=== PATIENT | male | born 1995 | race Caucasian/White ===

== ENCOUNTER 2018-04-22 19:47 | Emergency (ER) | payer OTHER ==
[2018-04-22 20:03] VITALS: BMI 23.9
--- NOTE | 2018-04-22 20:03 | PDOC ---
Rapid Medical Evaluation Chief Complaint: Pain, Acute Time Seen by Provider: 04/22/18 20:02 Medical Evaluation: Allergies Allergy/AdvReac Type Severity Reaction Status Date / Time No Known Allergies Allergy Verified 10/26/14 04:53 04/22/18 20:02 I have performed a brief in-person evaluation of this patient. The patient presents with a chief complaint of:N/V/ malaise , low grade fevers since yesterday Pertinent physical exam findings: pale/ apears malaisic I have ordered the following: taken to bed 2 The patient will proceed to the ED for further evaluation. 04/22/18 20:09 04/22/18 20:10 Discharge Disposition - Referrals Referrals: Ebenezer Bauer MD [Primary Care Provider] - - Patient Instructions - Post Discharge Activity
[2018-04-22] MEDS ORDERED: ONDANSETRON 4 MG/2 ML VIAL IVPUSH ONE (20:26)
[2018-04-22] MEDS ORDERED: SODIUM CHLORIDE 1,000 ML IV STA ×2 (20:26→22:57)
[2018-04-22] MEDS ORDERED: ACETAMINOPHEN 1000 MG/100 ML VIAL (NON FORMULARY) IVPB ONE (20:26)
--- NOTE | 2018-04-22 20:30 | PDOC ---
Attending Attestation - HPI HPI: 04/22/18 21:00 The patient is a 22 year old male, with a significant past medical history of Fanconi anemia, who presents to the emergency department with fever, headache, sore throat and lightheadedness since yesterday. He describes the headache as global and rates it a 10/10 in severity. He additionally reports multiple episodes of nonbilious nonbloody emesis and diarrhea. He states that he feels dehydrated because he has not been take to tolerate oral intake very well. He reports mild shortness of breath but denies any vision changes, chest pain, abdominal pain or dysuria. The patient denies any sick contacts. He reports that he did not receive a flu vaccine this year. Allergies: None reported. Past Surgical History: Tonsillectomy. Social History: Non-smoker. Denies alcohol or drug use. Documentation prepared by Samantha Koch, acting as medical translator for Dorys Huynh MD. <Samantha Amin - Last Filed: 04/22/18 21:02> - Resident Resident Name: Zhang Reyes - ED Attending Attestation I have performed the following: I have examined & evaluated the patient, The case was reviewed & discussed with the resident, I agree w/resident's findings & plan, Exceptions are as noted - HPI HPI: 04/22/18 20:29 22-year-old male presents with nausea, vomiting ,diarrhea and general malaise and headache for one day. 04/22/18 20:54 - Physicial Exam PE: 04/22/18 20:30 slender 22 yo male p/e low grade fever and tachycardia head ncat neck supple,no nuchal rigidity dry mucus membranes lungs cta b/l cvs tachycardia abd no rebound extremities warm, no deformities,motor strength 5/5 b/l skin warm and dry flank no cva tenderness neuro axox4,ambulatory psych anxious 04/22/18 20:54 - Medical Decision Making 04/22/18 20:32 Dr Ebenezer Bauer called and said this pt has N,V,RODRIGUEZ and fever . He requested a ct scan of his head and electrolytes including phosphorous,magnesium and also cpk DR Sridhar Guzman ,Dr Small are his nephrologists 04/23/18 01:50 reviewed labs normal cbc ct scan head no acute intracranial pathology chemistries normal renal function,normal lfts,normal electrolytes pt had negative influenza and step cultures 04/23/18 01:52 REPEAT VS t=98.4 NQ=268/70 pulse=91 04/23/18 02:13 repeat lactic acid=0.8 <Dorys Huynh - Last Filed: 04/23/18 02:13>
[2018-04-22] MEDS ORDERED: ONDANSETRON 4 MG/2 ML VIAL ONE (20:55)
[2018-04-22] MEDS ORDERED: ACETAMINOPHEN INJECTION 100 ML IVPB ONE (20:55)
[2018-04-22 21:02] LABS: BASO % 0.3 % (0-2.0); EOS % 0.1 % (0-4.5); HEMOGLOBIN 17.4 GM/dL (11.7-16.9); LYMPH % 11.3 % (8-40); MCH 30.8 pg (25.7-33.7); MCHC 34.9 g/dl (32.0-35.9); MEAN CELL VOLUME 88.1 fl (80-96); MEAN PLT VOLUME 8.4 fl (7.5-11.1); NEUT % 75.3 % (42.8-82.8); PLATELET COUNT 216 K/MM3 (134-434); RBC 5.67 M/mm3 (4.00-5.60); RDW 12.8 % (11.9-15.9); WHITE BLOOD COUNT 7.7 K/mm3 (4.0-10.0)
--- NOTE | 2018-04-22 21:41 | PDOC ---
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 Per the patient, he states the symptoms began yesterday. The headache has been constant, global, 10/10 without radiation and described as a throbbing pain. He reports having 3x NBNB emesis episodes since yesterday and diarrhea with associative dehydration due to poor PO intake. Endorses the following: mild SOB. Denies the following: vision changes, ears and nose pain, chest pain, abdominal pain, dysuria, hematocheza, recent travels, and leg pain/swelling. Endorses recently smoking hookah that was shared with others. Pmhx: Refer to above Shx: Tonsilectomy Meds: Refer to chart reconciliation Allergies: NKDA Social: Denies tobacco, alcohol, and substance abuse Past History - Past Medical History Allergies/Adverse Reactions: Allergies Allergy/AdvReac Type Severity Reaction Status Date / Time No Known Allergies Allergy Verified 04/22/18 20:03 Home Medications: Ambulatory Orders Calcitriol [Rocaltrol] 0.5 mcg PO TID 10/26/12 Ergocalciferol (Vitamin D2) [Vitamin D] 50,000 unit PO KASPER 10/26/12 Levocarnitine [Carnitor] 2.5 mg PO DAILY 10/26/12 Rosuvastatin Calcium [Crestor] 20 mg PO DAILY 10/26/12 Sod Phos Di, [place]/K Phos [place] [Phospha 250 Neutral Tablet] 250 mg PO Q2H COPD: No Other medical history: FANCONI SYNDROME - Immunization History Immunization Up to Date: Yes - Suicide/Smoking/Psychosocial Hx Smoking Status: No Smoking History: Never smoked Number of Cigarettes Smoked Daily: 0 Information on smoking cessation initiated: No Hx Alcohol Use: No Substance Use Type: None Review of Systems - Review of Systems Able to Perform ROS?: Yes Is the patient limited Danish proficient: No Constitutional: Yes: Chills, Fever. No: Diaphoresis, Weakness HEENTM: Yes: Throat Pain. No: Recent change in vision, Ear Pain, Nose Pain, Mouth Pain Respiratory: Yes: Shortness of Breath. No: Cough, Hemoptysis Cardiac (ROS): No: Chest Pain, Lightheadedness, Palpitations, Syncope, Chest Tightness ABD/GI: Yes: Diarrhea, Nausea, Poor Appetite, Poor Fluid Intake, Vomiting. No: Constipated, Rectal Bleeding, Abdominal cramping, Tarry Stools : No: Burning, Dysuria, Incontinence, Pain, Urgency Musculoskeletal: No: Back Pain, Gout, Joint Pain, Neck Pain Integumentary: No: Lesions, Lumps, Rash Neurological: Yes: Headache. No: Numbness, Tremors, Weakness, Ataxia, Dizziness Psychiatric: No: Stressors Endocrine: No: Unexplained Weight Gain Hematologic/Lymphatic: No: Anemia *Physical Exam - Vital Signs Last Vital Signs Temp Pulse Resp BP Pulse Ox 100.1 F H 134 H 18 114/84 98 04/22/18 20:00 04/22/18 20:00 04/22/18 20:00 04/22/18 20:00 04/22/18 21:12 - Physical Exam General Appearance: Yes: Nourished, Appropriately Dressed. No: Apparent Distress, Intoxicated HEENT: positive: EOMI, [place], Normal Voice, Symmetrical, TMs Normal, Pharyngeal Erythema, Nasal Congestion, Hearing Grossly Normal, Other (dry mucous membranes) . negative: Pharynx Normal, Tonsillar Exudate, Tonsillar Erythema, Sinus Tenderness, Excessive drooling Neck: positive: Trachea midline, Supple. negative: Tender, Lymphadenopathy (R) , Lymphadenopathy (L), Tender lateral, Tender midline Respiratory/Chest: positive: Lungs Clear, Normal Breath Sounds. negative: Chest Tender, Respiratory Distress, Accessory Muscle Use, Crackles, Rales, Rhonchi, Stridor, Wheezing Cardiovascular: positive: Regular Rhythm, S1, S2, Tachycardia. negative: Systolic Murmur Gastrointestinal/Abdominal: positive: Normal Bowel Sounds, Flat, Soft. negative : Tender Lymphatic: negative: Adenopathy Musculoskeletal: positive: Normal Inspection. negative: CVA Tenderness, Vertebral Tenderness Extremity: positive: Normal Capillary Refill, Normal Inspection, Normal Range of Motion. negative: Tender Integumentary: positive: Normal Color, Dry, Warm Neurologic: positive: tennis racket repairer II-XII NML intact, Fully Oriented, Alert, Normal Mood/ Affect, Normal Response, Motor Strength 5/5. negative: EOM Palsy, Facial Droop , Sensory Deficit Moderate Sedation - Procedure Monitoring Vital Signs: Procedure Monitoring Vital Signs Temperature 100.1 F H 04/22/18 20:00 Pulse Rate 134 H 04/22/18 20:00 Respiratory Rate 18 04/22/18 20:00 Blood Pressure 114/84 04/22/18 20:00 O2 Sat by Pulse Oximetry (%) 98 04/22/18 21:12 ED Treatment Course - LABORATORY CBC & Chemistry Diagram: 04/22/18 20:50 04/22/18 20:50 - ADDITIONAL ORDERS Additional order review: 04/22/18 20:50 RBC 5.67 H MCV 88.1 MCHC 34.9 RDW 12.8 MPV 8.4 Neutrophils % 75.3 Lymphocytes % 11.3 Monocytes % 13.0 H D Eosinophils % 0.1 D Basophils % 0.3 - RADIOLOGY Radiology Studies Ordered: Category Date Time Status HEAD CT WITHOUT CONTRAST [CT] Stat CT Scan 04/22/18 20:24 Ordered - Medications Given in the ED: ED Medications Discontinued Medications Generic Name Dose Route Start Last Admin Trade Name Freq PRN Reason Stop Dose Admin Acetaminophen 1,000 mg 04/22/18 20:26 04/22/18 21:06 Ofirmev Injection - IVPB 04/22/18 20:27 1,000 mg ONCE ONE Administration Sodium Chloride 1,000 mls @ 1,000 mls/hr 04/22/18 20:26 04/22/18 21:06 Normal Saline - IV 04/22/18 21:25 1,000 mls/hr ASDIR STA Administration Ondansetron HCl 4 mg 04/22/18 20:26 04/22/18 21:06 Zofran Injection IVPUSH 04/22/18 20:27 4 mg ONCE ONE Administration Medical Decision Making - Medical Decision Making 22 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 initial vitals: Initial Vital Signs Temp Pulse Resp BP Pulse Ox 100.1 F H 134 H 18 114/84 98 04/22/18 20:00 04/22/18 20:00 04/22/18 20:00 04/22/18 20:00 04/22/18 20:00 work up: ddx: viral syndrome (influenza vs rhino) vs bacterial infection (PNA) vs worsening fanconi syndrome (electrolyte disturbance) vs intracranial mass Laboratory Tests 04/22/18 04/22/18 04/22/18 10:37 20:50 20:50 WBC 7.7 RBC 5.67 H Hgb 17.4 H Hct 50.0 H MCV 88.1 MCH 30.8 MCHC 34.9 RDW 12.8 Plt Count 216 MPV 8.4 Absolute Neuts (auto) 5.8 Neutrophils % 75.3 Lymphocytes % 11.3 Monocytes % 13.0 H D Eosinophils % 0.1 D Basophils % 0.3 Nucleated RBC % 0 Sodium 137 Potassium 4.3 Chloride 106 Carbon Dioxide 23 Anion Gap 8 BUN 9 Creatinine 1.2 Creat Clearance w eGFR > 60 Random Glucose 155 H Lactic Acid Calcium 8.4 L Phosphorus 4.0 Magnesium 2.3 Total Bilirubin 0.6 AST 17 ALT 27 Alkaline Phosphatase 84 Creatine Kinase 46 Total Protein 7.9 Albumin 4.0 Urine Color Colorless Urine Appearance Clear Urine pH 7.0 Ur Specific Omar 1.011 Urine Protein 1+ H Urine Glucose (UA) 3+ H Urine Ketones Negative Urine Blood 1+ H Urine Nitrite Negative Urine Bilirubin Negative Urine Urobilinogen Negative Ur Leukocyte Esterase Negative Urine WBC (Auto) 1 Urine RBC (Auto) 2 Influenza A (Rapid) Influenza B (Rapid) Group A Strep Rapid 04/22/18 04/22/18 04/22/18 20:50 21:00 21:00 WBC RBC Hgb Hct MCV MCH MCHC RDW Plt Count MPV Absolute Neuts (auto) Neutrophils % Lymphocytes % Monocytes % Eosinophils % Basophils % Nucleated RBC % Sodium Potassium Chloride Carbon Dioxide Anion Gap BUN Creatinine Creat Clearance w eGFR Random Glucose Lactic Acid 2.9 H* Calcium Phosphorus Magnesium Total Bilirubin AST ALT Alkaline Phosphatase Creatine Kinase Total Protein Albumin Urine Color Urine Appearance Urine pH Ur Specific Omar Urine Protein Urine Glucose (UA) Urine Ketones Urine Blood Urine Nitrite Urine Bilirubin Urine Urobilinogen Ur Leukocyte Esterase Urine WBC (Auto) Urine RBC (Auto) Influenza A (Rapid) Negative Influenza B (Rapid) Negative Group A Strep Rapid Negative 04/23/18 01:00 WBC RBC Hgb Hct MCV MCH MCHC RDW Plt Count MPV Absolute Neuts (auto) Neutrophils % Lymphocytes % Monocytes % Eosinophils % Basophils % Nucleated RBC % Sodium Potassium Chloride Carbon Dioxide Anion Gap BUN Creatinine Creat Clearance w eGFR Random Glucose Lactic Acid 0.8 Calcium Phosphorus Magnesium Total Bilirubin AST ALT Alkaline Phosphatase Creatine Kinase Total Protein Albumin Urine Color Urine Appearance Urine pH Ur Specific Omar Urine Protein Urine Glucose (UA) Urine Ketones Urine Blood Urine Nitrite Urine Bilirubin Urine Urobilinogen Ur Leukocyte Esterase Urine WBC (Auto) Urine RBC (Auto) Influenza A (Rapid) Influenza B (Rapid) Group A Strep Rapid labs were within normal limits except for the lactic acid at 2.9. this is likely dehydration vs infection due to WBC normal. Per Dr. Bauer, he requested a CT head which was negative for acute pathologies. negative influenza and strep. patient was given 1 gram of acetaminophen and 2 L of NS 0.9% for rehydration. Subsequent repeat of lactic acid showed 0.8 with vital signs showing the following: temperature 98.4, BP 118/70, and pulse 91. Patient will be discharged with close PMD follow up. I discussed the physical exam findings, ancillary test results, and final diagnoses with the patient. I answered all of the patients questions to their satisfaction. The patient was satisfied with the care received and felt comfortable with the discussed discharge and treatment plan and accepted it. They agreed to follow up with their primary medical physical physician within 24 -72 hours after discharge for follow up care and management. Dispo: Discharge *DC/Admit/Observation/Transfer Diagnosis at time of Disposition: Viral syndrome, Fanconi syndrome - Discharge Dispostion Disposition: HOME Condition at time of disposition: Improved Decision to Admit order: No - Referrals Referrals: Ebenezer Bauer MD [Primary Care Provider] - Michelle Small MD [Staff Physician] - - Patient Instructions Printed Discharge Instructions: DI for Viral Syndrome Additional Instructions: You were seen in the emergency department for the evaluation of your headache, fever, nausea, and vomiting. your labs were within normal limits except for your lactic acid which was elevated. after fluids and pain control, your lactic acid improved to within normal limits and your vital signs improved. please follow up with Dr. Bauer within 48 hours after discharge for follow up care and management. please return to the emergency department if you have worsening symptoms or new concerning symptoms such as confusion, diffuse abdominal pain, and uncontrollable vomiting and nausea. in addition, please return if you have severe muscle spasm. Thank you. - Post Discharge Activity
[2018-04-22] MEDS ORDERED: METOCLOPRAMIDE HCL INJECTION 10 MG/2 ML VIAL IVPUSH ONE (22:01)
[2018-04-22 22:08] LABS: ALK PHOS 84 U/L (45-117); ANION GAP 8 MMOL/L (8-16); BILIRUBIN,TOTAL 0.6 mg/dL (0.2-1); BLOOD UREA NITROGEN 9 mg/dL (7-18); CALCIUM 8.4 mg/dL (8.5-10.1); CHLORIDE 106 mmol/L (98-107); CO2 23 mmol/L (21-32); CREATININE 1.2 mg/dL (0.55-1.3); GLUCOSE,RANDOM 155 mg/dL (74-106); MAGNESIUM 2.3 mg/dL (1.8-2.4); POTASSIUM 4.3 mmol/L (3.5-5.1); SGOT/AST 17 U/L (15-37); SGPT/ALT 27 U/L (13-61); SODIUM 137 mmol/L (136-145); TOT PROT 7.9 g/dl (6.4-8.2)
[2018-04-22] MEDS ORDERED: METOCLOPRAMIDE HCL INJECTION 10 MG/2 ML VIAL ONE (22:21)
[2018-04-22 22:50] LABS: URINE APPEARANCE CLEAR; URINE BILIRUBIN NEGATIVE (<2.0 mg/dL); URINE COLOR COLORLESS; URINE GLUCOSE (UA) 3+ (NEGATIVE); URINE KETONE NEGATIVE (NEGATIVE); URINE LEUK ESTERASE NEGATIVE (NEGATIVE); URINE NITRITE NEGATIVE (NEGATIVE); URINE PROTEIN 1+ (NEGATIVE); URINE UROBILINOGEN NEGATIVE mg/dL (0.2-1.0)
[2018-04-23 01:53] VITALS: BP 118/70; PULSE 91; TEMP 98.4
== END 2018-04-23 02:59 | disposition home or self-care (01) ==
LOC: JER 19:47
PROC: 3E033NZ Introduction of Analgesics, Hypnotics, Sedatives into Peripheral Vein, Percutaneous Approach (ICD-10-PCS; principal; 2018-04-22)
PROC: 3E033GC Introduction of Other Therapeutic Substance into Peripheral Vein, Percutaneous Approach (ICD-10-PCS; 2018-04-22)
PROC: 3E0337Z Introduction of Electrolytic and Water Balance Substance into Peripheral Vein, Percutaneous Approach (ICD-10-PCS; 2018-04-22)
DX: B34.9 Viral infection, unspecified (principal); E72.09 Other disorders of amino-acid transport
CPT/HCPCS: 36415; 70450-TC; 71046-TC-FY; 80053; 81003; 81015; 82550; 83605; 83735; 84100; 85025; 87070; 87086; 87804; 87880; 99285-25; J0131; J7030

== ENCOUNTER 2018-09-29 02:04 | Emergency (ER) | payer OTHER | END 2018-09-29 03:05 | disposition home or self-care (01) | LOC: JER 02:04 ==

== ENCOUNTER 2018-10-19 09:42 | Emergency (ER) | payer OTHER ==
[2018-10-19 09:53] VITALS: TEMP 97.6; BMI 24.7
--- NOTE | 2018-10-19 09:56 | PDOC ---
History of Present Illness - General Chief Complaint: Nausea/Vomiting Stated Complaint: DEHYDRATION Time Seen by Provider: 10/19/18 09:55 - History of Present Illness Initial Comments: Robert Arriola is a 23yo man with a PMH of Fanconi syndrome who presents with multiple episodes of NBNB vomiting and subsequent abdominal pain after drinking last night. His sister and brother brought him to the ED; they report that he rarely drinks and "gets dehydrated really easily" due to his Fanconi's. Mr Arriola report that he "doesn't feel good" and "keeps throwing up." He is concerned that he is very dehydrated and is requesting IV fluids. Past History - Past Medical History Allergies/Adverse Reactions: Allergies Allergy/AdvReac Type Severity Reaction Status Date / Time No Known Allergies Allergy Verified 10/19/18 11:10 Home Medications: Ambulatory Orders Calcitriol [Rocaltrol] 0.5 mcg PO TID 10/26/12 Ergocalciferol (Vitamin D2) [Vitamin D] 50,000 unit PO KASPER 10/26/12 Rosuvastatin Calcium [Crestor] 20 mg PO DAILY 10/26/12 Sod Phos Di, [place]/K Phos [place] [Phospha 250 Neutral Tablet] 250 mg PO Q2H Dextroamphetamine/Amphetamine [Adderall Xr 30 mg Capsule] 30 mg PO ASDIR Famotidine [Pepcid -] 20 mg PO DAILY #7 tablet 10/19/18 Levocarnitine 330 mg PO 10/19/18 Ondansetron [Zofran Odt -] 4 mg SL TID PRN #21 od.tablet 10/19/18 Potassium Citrate 1,620 gm MC Q2H 10/19/18 COPD: No - Immunization History Immunization Up to Date: Yes - Suicide/Smoking/Psychosocial Hx Smoking Status: No Smoking History: Current every day smoker Have you smoked in the past 12 months: No Number of Cigarettes Smoked Daily: 0 Information on smoking cessation initiated: No Hx Alcohol Use: No Drug/Substance Use Hx: No Substance Use Type: None Review of Systems - Review of Systems Comments:: General: No fevers, no chills, no weight or appetite change, + malaise HEENT: No changes in vision, no changes in hearing, no congestion, no sore throat CV: No chest pain, no palpitations, no LE edema Pulm: No SOB, no cough, no wheezing GI: +nausea and vomiting, no change in bowel habits, no melena : No frequency, no urgency, no dysuria Musc: No back pain, no joint swelling, no recent injury Skin: No rash, no lesions, no erythema Endo: No excessive thirst, no heat/cold intolerance Heme: No unusual bruising or bleeding, no swollen glands Neuro: No syncope, no numbness/tingling, no focal weakness Vasc: No claudication Psych: No recent change in mood, no SI or HI *Physical Exam - Vital Signs Last Vital Signs Temp Pulse Resp BP Pulse Ox 97.6 F 112 H 16 110/59 L 98 10/19/18 09:50 10/19/18 09:50 10/19/18 09:50 10/19/18 09:50 10/19/18 09:50 - Physical Exam Comments: General: Comfortable, no acute distress HEENT: PERRL, EOMI, conjunctival injection b/l, MMM, voice normal Cards: RRR, no murmur appreciated Pulm: Comfortable on room air, clear to auscultation bilaterally Abd: Soft, nontender, nondistended Ext: Atraumatic. No LE edema. ROM intact Vasc: Extremities WWP Skin: Normal color, no rashes or lesions Neuro: A&Ox3, CN grossly intact, normal speech, motor/sensory grossly intact and symmetric Psych: Mood appropriate to situation ED Treatment Course - LABORATORY CBC & Chemistry Diagram: 10/19/18 10:06 10/19/18 10:06 Medical Decision Making - Medical Decision Making 10/19/18 10:05 Robert Arriola is a 23yo man with a PMH of Fanconi syndrome who presents with multiple episodes of NBNB vomiting, nausea, abdominal pain and general malaise after going out drinking last night. - Most likely n/v secondary to alcohol overuse - Given medical history, will evaluate for electrolyte abnormalities, SNOW, or significant dehydration - 1L IVF, famotidine, reglan, acetaminophen 10/19/18 11:29 - Labs reviewed. Chemistry w/o concerning abnormalities. Cr 0.9, apparently at baseline. Hgb 18.1, up from baseline, likely due to mild dehydration. - Will most likely discharge when IVF completed - PO challenge 10/19/18 12:17 - Tolerated PO intake - Discussed lab results, no concerning findings, kidney function unchanged. - Vitals now normal, HR 80 - Advised regarding home care, follow up Discussed with Dr Yu. Renae Galindo PGY1 *DC/Admit/Observation/Transfer Diagnosis at time of Disposition: Nausea & vomiting Qualifiers: Vomiting type: unspecified Vomiting Intractability: non-intractable Qualified Code(s): R11.2 - Nausea with vomiting, unspecified Hangover Qualifiers: Complication of substance-induced condition: uncomplicated Qualified Code(s): F10.120 - Alcohol abuse with intoxication, uncomplicated - Discharge Dispostion Disposition: HOME Condition at time of disposition: Stable - Referrals Referrals: Ebenezer Bauer MD [Primary Care Provider] - - Patient Instructions Printed Discharge Instructions: DI for Vomiting -- Adult Additional Instructions: Discharge Instructions: You were seen in the ED for nausea and vomiting. You had blood tests which showed normal kidney function and normal electrolytes. You were given IV fluids , acetaminophen for pain, an anti-acid medication (Pepcid) and an anti-nausea medication (Reglan). Home Care and Follow Up: - Please continue to drink plenty of fluids at home. It is OK if you are not hungry as long as you are staying well-hydrated. - You have been prescribed a nausea medication called Zofran (ondansetron). This may be taken every 6-8 hours as needed for nausea or vomiting. - You have been prescribed an anti-acid medication called Pepcid. This can be taken daily for the next 7 days or until your symptoms resolve. You were given a dose while in the ED, so start this medication tomorrow. - Please follow up with your regular doctor within the next 2-3 days - Seek immediate care if your symptoms do not improve within a day or two, you are unable to tolerate fluids, you become dehydrated, you stop urinating or have very dark urine, or you have any other medical emergency. - Post Discharge Activity
--- NOTE | 2018-10-19 09:58 | PDOC ---
Attending Attestation - Resident Resident Name: Renae Galindo - ED Attending Attestation I have performed the following: I have examined & evaluated the patient, The case was reviewed & discussed with the resident, I agree w/resident's findings & plan - HPI HPI: 10/19/18 09:57 23 YOM with h/o fanconi syndrome presenting with abdominal pain, nausea, NBNB emesis since last night. he was drinking alcohol last night with friends and admits to drinking more than he should. no fever, urinary sx, bowel movement changes, diarrhea or bloody stools. unable to take PO today no sick contacts or travel. 10/19/18 10:43 - Physicial Exam PE: 10/19/18 10:45 Agree with the resident's HPI and PE as documented in the electronic medical record. malaised appearing, EOMI, PERRL, dry membranes, nl conjunctiva, anicteric; neck supple. lungs clear, tachycardic, abdomen soft nontender. Back nontender, no CVAT. TAM x4, no focal neuro deficits. No peripheral edema. normal color for ethnicity, WWP. - Medical Decision Making 10/19/18 10:45 Vital Signs Temp Pulse Resp BP Pulse Ox 97.6 F 112 H 16 110/59 L 98 10/19/18 09:50 10/19/18 09:50 10/19/18 09:50 10/19/18 09:50 10/19/18 09:50 See HPI for details. Prior notes reviewed, including admissions, discharges and consultations. Vital signs reviewed, +tachycardic, no fever normotensive, likely from dehydration ddx. gastritis, PUD, ulcer, pancreatitis, hepatitis, dehydration, anemia, electrolyte/metabolic derangements, food poisoning, alcohol poisoning/hangover ED course: IVF, reglan, tylenol for pain, pepcid, reassess labs and lytes wnl, normal LFTs and lipase; hemoconcentration noted, from dehydration abdomen soft and benign, doubt peritoneal or intra abdominal process, no systemic sx. tolerating PO intake feels improved, repeat VS improved, tachy down, nonseptic rx zofran for n/v, as needed resume home meds stay hydrated, supportive care, DC in stable condition, return precautions emphasized PCP followup Dr Bauer, who came to assess patient briefly while in the department. 10/19/18 10:47 10/19/18 10:48 10/19/18 11:31
[2018-10-19] MEDS ORDERED: ACETAMINOPHEN 1000 MG/100 ML VIAL (NON FORMULARY) IVPB ONE (10:05)
[2018-10-19] MEDS ORDERED: FAMOTIDINE 20 MG/50 ML IVPB 20 MG/50 ML MG IVPB ONE ×2 (10:05→10:20)
[2018-10-19] MEDS ORDERED: SODIUM CHLORIDE 0.9% 500 ML INFUS.BAG IV ONE (10:05)
[2018-10-19] MEDS ORDERED: METOCLOPRAMIDE HCL INJECTION 10 MG/2 ML VIAL IVPUSH ONE (10:05)
[2018-10-19] MEDS ORDERED: ACETAMINOPHEN INJECTION 100 ML IVPB ONE (10:20)
[2018-10-19] MEDS ORDERED: METOCLOPRAMIDE HCL INJECTION 10 MG/2 ML VIAL ONE (10:20)
[2018-10-19 10:23] LABS: BASO % 0.4 % (0-2.0); HEMATOCRIT 54.1 % (35.4-49); HEMOGLOBIN 18.1 GM/dL (11.7-16.9); LYMPH % 12.2 % (8-40); MCH 30.6 pg (25.7-33.7); MCHC 33.5 g/dl (32.0-35.9); MEAN CELL VOLUME 91.1 fl (80-96); MEAN PLT VOLUME 8.1 fl (7.5-11.1); MONO % 2.7 % (3.8-10.2); NEUT % 84.7 % (42.8-82.8); RBC 5.93 M/mm3 (4.00-5.60); RDW 13.6 % (11.9-15.9); WHITE BLOOD COUNT 9.4 K/mm3 (4.0-10.0)
[2018-10-19 10:50] LABS: ALBUMIN 4.7 g/dl (3.4-5.0); BILIRUBIN,TOTAL 0.5 mg/dL (0.2-1); CALCIUM 9.1 mg/dL (8.5-10.1); CREATININE 0.9 mg/dL (0.55-1.3); MAGNESIUM 2.9 mg/dL (1.8-2.4); PHOSPHOROUS 2.7 mg/dL (2.5-4.9); POTASSIUM 3.8 mmol/L (3.5-5.1); TOT PROT 8.3 g/dl (6.4-8.2)
[2018-10-19 11:28] LABS: PLATELET COUNT 256 K/MM3 (134-434)
[2018-10-19 12:09] VITALS: BP 113/74; PULSE 88
== END 2018-10-19 12:42 | disposition home or self-care (01) ==
LOC: JER 09:42
PROC: 3E033GC Introduction of Other Therapeutic Substance into Peripheral Vein, Percutaneous Approach (ICD-10-PCS; principal; 2018-10-19)
DX: F10.120 Alcohol abuse with intoxication, uncomplicated (principal); R11.2 Nausea with vomiting, unspecified
CPT/HCPCS: 36415; 80053; 83690; 83735; 84100; 85025; 96365; 99282-25; J0131

== ENCOUNTER 2019-06-26 02:11 | Emergency (ER) | payer OTHER ==
--- NOTE | 2019-06-26 02:42 | PDOC ---
Attending Attestation - Resident Resident Name: Allan Mei - ED Attending Attestation I have performed the following: I have examined & evaluated the patient, The case was reviewed & discussed with the resident, I agree w/resident's findings & plan - HPI HPI: 06/26/19 06:13 see resident hpi - Physicial Exam PE: 06/26/19 06:13 see resident exam 06/26/19 06:16 - Medical Decision Making 06/26/19 06:17 23-year-old male complaining of [id number] to the chest and shortness of breath after taking Adderall later than usual He did have an episode of vomiting as well EKG is unremarkable Labs show no acute electrolyte abnormality, troponin within normal limits Patient is feeling better, will DC with recommendation to follow-up with primary care in regards to medication administration instructions
[2019-06-26 02:48] VITALS: BMI 23.8
--- NOTE | 2019-06-26 02:52 | PDOC ---
History of Present Illness - General Chief Complaint: Shortness of Breath Stated Complaint: SOB,NAUSEA Time Seen by Provider: 06/26/19 02:39 History Source: Patient Exam Limitations: No Limitations - History of Present Illness Initial Comments: 06/26/19 02:51 PCP: Dr. Bauer HPI: 23yo M PMH of Fanconi syndrome who presents with multiple episodes of NBNB vomiting since 3-4PM. Also endorsing mild headache, lightheadedness, intermittent sharp non-radiating chest pain, shortness of breath. Reports that he "gets dehydrated really easily" due to his Fanconi's and states that he doesn 't feel well and probably needs IV fluids. He is concerned that his Adderall use later in the caused his nausea. He reports that he is having difficulty sleeping because he is concerned over his nausea. no cardaic history, denies any medical problems other than those listed above. Endorses infrequent alcohol consumption, denies illicits. NKDA Meds per chart Past History - Past Medical History Allergies/Adverse Reactions: Allergies Allergy/AdvReac Type Severity Reaction Status Date / Time No Known Allergies Allergy Verified 10/19/18 11:10 Home Medications: Ambulatory Orders Calcitriol [Rocaltrol] 0.5 mcg PO TID 10/26/12 Ergocalciferol (Vitamin D2) [Vitamin D] 50,000 unit PO KASPER 10/26/12 Rosuvastatin Calcium [Crestor] 20 mg PO DAILY 10/26/12 Sod Phos Di, [place]/K Phos [place] [Phospha 250 Neutral Tablet] 250 mg PO Q2H Dextroamphetamine/Amphetamine [Adderall Xr 30 mg Capsule] 30 mg PO ASDIR Famotidine [Pepcid -] 20 mg PO DAILY #7 tablet 10/19/18 Levocarnitine 330 mg PO 10/19/18 Ondansetron [Zofran Odt -] 4 mg SL TID PRN #21 od.tablet 10/19/18 Potassium Citrate 1,620 gm MC Q2H 10/19/18 COPD: No - Immunization History Immunization Up to Date: Yes - Psycho Social/Smoking Cessation Hx Smoking Status: No Smoking History: Never smoked Have you smoked in the past 12 months: No Number of Cigarettes Smoked Daily: 0 Hx Alcohol Use: No Drug/Substance Use Hx: No Substance Use Type: None Review of Systems - Review of Systems Able to Perform ROS?: Yes Is the patient limited French proficient: Yes Constitutional: Yes: Chills. No: Diaphoresis, Fever, Weakness HEENTM: No: Nose Congestion, Throat Pain Respiratory: Yes: See HPI, Shortness of Breath. No: Cough, SOB with Exertion, SOB at Rest Cardiac (ROS): Yes: See HPI, Chest Pain (sharp, worse when sitting, less with movement / distraction). No: Irregular Heart Rate, Lightheadedness, Palpitations, Syncope, Chest Tightness ABD/GI: Yes: See HPI, Nausea, Vomiting. No: Constipated, Diarrhea : No: Burning, Dysuria, Frequency Musculoskeletal: No: Muscle Pain, Muscle Weakness, Neck Pain Integumentary: No: Pruritus, Rash Neurological: No: Headache, Numbness, Tingling Psychiatric: No: Stressors, Change in Appetite Endocrine: No: Increased Thirst, Increased Urine Hematologic/Lymphatic: No: Anemia, Blood Clots, Easy Bleeding All Other Systems: Reviewed and Negative *Physical Exam - Vital Signs Last Vital Signs Temp Pulse Resp BP Pulse Ox 97.9 F 110 H 18 129/86 99 06/26/19 02:44 06/26/19 02:44 06/26/19 02:44 06/26/19 02:44 06/26/19 02:44 - Physical Exam 06/26/19 05:57 Vitals reviewed, AFVSS GEN: Well appearing, appears stated age, NAD, comfortable. AAOx3. HEENT: NCAT, EOMI, PERRL. Sclera anicteric, noninjected. No facial asymmetry. Moist mucous membranes. Normal voice. Trachea midline. CV: RRR, S1/S2, no murmurs / rubs / gallops appreciated. LUNG: CTAB, normal work of breathing. No wheezes, rales, rhonchi. No cough. Speaking full sentences. GI: Soft, NTND, +BS, no guarding, no rebound. No masses. Neg CVAT b/l. EXTREMITIES: 2+ distal pulses. No LE edema. No obvious deformities of all extremities. SKIN: Warm, dry, no rashes appreciated, non-jaundiced. PSYCH: Normal mood and affect. Cooperative and appropriate. NEURO: CN grossly intact. Moving all extremities well. Normal strength and sensation grossly. ED Treatment Course - LABORATORY CBC & Chemistry Diagram: 06/26/19 03:30 06/26/19 03:30 Medical Decision Making - Medical Decision Making 06/26/19 04:46 23yo M PMH of Fanconi syndrome who presents with multiple episodes of NBNB vomiting since 3-4PM. Exam notable for tachycardia, afebrile. DDX: Viral gastritis, dehydration, less likely PE. Cannot PERC out given HR, Wells 1.5 for HR (low risk). - CBC, CMP, Cardiac Profile, D-Dimer - EKG - 1L IVF EKbpm, NSR, normal axis, normal intervals, no ST changes or concerning morphologies 06/26/19 05:07 - Additional 1L IVF - 4mg Zofran - 1g Ofirmev - Labs unremarkable 06/26/19 05:58 - Patient is resting comfortably in the department - States that he is feeling better - Able to tolerate PO juice and crackers - Sent for Xray 06/26/19 06:35 - CXR unchaged from prior, no acute pathology Dispo: Home Discharge - Discharge Information Problems reviewed: Yes Clinical Impression/Diagnosis: Nausea & vomiting Qualifiers: Vomiting type: unspecified Vomiting Intractability: non-intractable Qualified Code(s): R11.2 - Nausea with vomiting, unspecified Condition: Improved Disposition: HOME - Admission No - Follow up/Referral Referrals: Ebenezer Bauer MD [Primary Care Provider] - - Patient Discharge Instructions Patient Printed Discharge Instructions: DI for Nausea -- Adult, DI for Vomiting -- Adult Additional Instructions: You were seen and evaluated for nausea and vomiting. Continue your home medications as prescribed. Follow up with Dr. Bauer in the next 1-3 days if symptoms persist. Return to the ED for any new or concerning symptoms including but not limited to : inability to take fluid by mouth. - Post Discharge Activity
[2019-06-26] MEDS ORDERED: SODIUM CHLORIDE 0.9% 500 ML INFUS.BAG IV ONE ×2 (03:12→05:07)
[2019-06-26 03:52] LABS: BASO % 0.5 % (0-2.0); EOS % 0.4 % (0-4.5); HEMOGLOBIN 18.7 GM/dL (11.7-16.9); LYMPH % 32.4 % (8-40); MCH 30.4 pg (25.7-33.7); MCHC 33.9 g/dl (32.0-35.9); MEAN CELL VOLUME 89.6 fl (80-96); MEAN PLT VOLUME 8.4 fl (7.5-11.1); MONO % 5.7 % (3.8-10.2); PLATELET COUNT 252 K/MM3 (134-434); RBC 6.14 M/mm3 (4.00-5.60); RDW 12.4 % (11.9-15.9); WHITE BLOOD COUNT 5.8 K/mm3 (4.0-10.0)
[2019-06-26 03:56] LABS: INR 0.97 (0.83-1.09); PROTHROMBIN TIME (PATIENT) 11.5 SEC (9.7-13.0)
[2019-06-26 04:16] LABS: ALBUMIN 4.1 g/dl (3.4-5.0); ALK PHOS 84 U/L (45-117); ANION GAP 7 MMOL/L (8-16); BILIRUBIN,TOTAL 1.2 mg/dL (0.2-1); BLOOD UREA NITROGEN 12.3 mg/dL (7-18); CALCIUM 9.3 mg/dL (8.5-10.1); CHLORIDE 110 mmol/L (98-107); CO2 25 mmol/L (21-32); CREATININE 1.2 mg/dL (0.55-1.3); GLUCOSE,RANDOM 118 mg/dL (74-106); SGOT/AST 22 U/L (15-37); SGPT/ALT 32 U/L (13-61); SODIUM 141 mmol/L (136-145); TOT PROT 7.8 g/dl (6.4-8.2)
[2019-06-26] MEDS ORDERED: ONDANSETRON 4 MG/2 ML VIAL IVPUSH ONE (05:07)
[2019-06-26] MEDS ORDERED: ACETAMINOPHEN 1000 MG/100 ML VIAL (NON FORMULARY) IVPB ONE (05:19)
[2019-06-26] MEDS ORDERED: ACETAMINOPHEN INJECTION 100 ML IVPB ONE (05:40)
[2019-06-26] MEDS ORDERED: ONDANSETRON 4 MG/2 ML VIAL ONE (05:42)
[2019-06-26 06:46] VITALS: BP 118/87; PULSE 98; TEMP 98.4
--- NOTE | 2019-06-26 14:14 | EKG ---
Test Reason : Blood Pressure : / mmHG Vent. Rate : 096 BPM Atrial Rate : 096 BPM P-R Int : 124 ms QRS Dur : 086 ms QT Int : 366 ms P-R-T Axes : 077 079 083 degrees QTc Int : 462 ms NORMAL SINUS RHYTHM NORMAL ECG NO PREVIOUS ECGS AVAILABLE Confirmed by NIELS MONTANEZ MD ([id number]) on 06/26/2019 2:13:34 PM Referred By: Confirmed By:NIELS MONTANEZ MD
== END 2019-06-26 06:50 | disposition home or self-care (01) ==
LOC: JER 02:11
PROC: 3E033GC Introduction of Other Therapeutic Substance into Peripheral Vein, Percutaneous Approach (ICD-10-PCS; principal; 2019-06-26)
PROC: 3E033NZ Introduction of Analgesics, Hypnotics, Sedatives into Peripheral Vein, Percutaneous Approach (ICD-10-PCS; 2019-06-26)
DX: R11.2 Nausea with vomiting, unspecified (principal); R06.02 Shortness of breath; E72.09 Other disorders of amino-acid transport
CPT/HCPCS: 36415; 71046-TC-FY; 80053; 82550; 84484; 85025; 85379; 85610; 93005; 93010; 99285-25; J0131

== ENCOUNTER 2019-11-14 13:52 | Inpatient (IN) | payer OTHER ==
--- NOTE | 2019-11-14 13:58 | PDOC ---
Rapid Medical Evaluation Time Seen by Provider: 11/14/19 13:54 Medical Evaluation: Allergies Allergy/AdvReac Type Severity Reaction Status Date / Time No Known Allergies Allergy Verified 10/19/18 11:10 11/14/19 13:55 CC: hx fanconi syndrome, was working out now with pain and tightness to alex arms, no fever, Exam: Noted firm edematous left arm greater around elbows, FROM Plan: labs, Dr chaparro (PMD) 11/14/19 19:38 Discharge Disposition - Diagnosis Rhabdomyolysis - Discharge Dispostion Condition at time of disposition: Stable - Referrals - Patient Instructions - Post Discharge Activity
[2019-11-14 14:18] VITALS: BMI 25.7
--- NOTE | 2019-11-14 14:55 | PDOC ---
History of Present Illness <Bobbi Mcdowell - Last Filed: 11/14/19 17:12> - General History Source: Patient Exam Limitations: No Limitations - History of Present Illness Initial Comments: 11/14/19 14:50 24-year-old male past medical history of Fanconi syndrome presenting to the ED complaining of bilateral arm pain after exercising. Patient states that 2 days ago he was performing push-ups and pull-ups and woke up the next morning with b oth elbows swollen as well as tenderness to his bilateral bicep muscles. Patient is currently complaining of pain on arm extension and full flexion but states he is able to still perform ROM. Patient denies any dark urine weakness fatigue. Patient was sent to ED by Dr. Sanchez for rhabdomyolysis rule out. Pt otherwise denies: fevers, chills, syncope, lightheadedness, dizziness, headaches, neck pain, chest pain, shortness of breath, palpitations, back pain, abdominal pain, nausea, vomiting, diarrhea, constipation. <Paulino Rowe - Last Filed: 11/14/19 18:17> - General Chief Complaint: Pain Stated Complaint: ARM PAIN Time Seen by Provider: 11/14/19 13:54 Past History <Bobbi Mcdowell - Last Filed: 11/14/19 17:12> - Medical History COPD: No GI Disorders: Yes (Franconi's? syndrome) - Immunization History Immunization Up to Date: Yes - Psycho-Social/Smoking History Smoking Status: No Smoking History: Never smoked Have you smoked in the past 12 months: No Number of Cigarettes Smoked Daily: 0 - Substance Abuse Hx (Audit-C & DAST Scrn) How often the patient has a drink containing alcohol: Never Score: In Men: 4 or > Positive; In Women: 3 or > Positive: 0 Screen Result (Pos requires Nsg. Audit-10AR): Negative In the last yr the pt used illegal drug/Rx for NonMed reason: No Score: Yes response is considered Positive: 0 Screen Result (Positive result requires Nsg. DAST-10): Negative <Paulino Rowe - Last Filed: 11/14/19 18:17> - Medical History Allergies/Adverse Reactions: Allergies Allergy/AdvReac Type Severity Reaction Status Date / Time No Known Allergies Allergy Verified 11/14/19 13:55 Home Medications: Ambulatory Orders Calcitriol [Rocaltrol] 0.5 mcg PO TID 10/26/12 Ergocalciferol (Vitamin D2) [Vitamin D] 50,000 unit PO KASPER 10/26/12 Rosuvastatin Calcium [Crestor] 20 mg PO DAILY 10/26/12 Sod Phos Di, [place]/K Phos [place] [Phospha 250 Neutral Tablet] 250 mg PO Q2H 04/22/18 Dextroamphetamine/Amphetamine [Adderall Xr 30 mg Capsule] 30 mg PO ASDIR 10/19/18 Famotidine [Pepcid -] 20 mg PO DAILY #7 tablet 10/19/18 Levocarnitine 330 mg PO 10/19/18 Ondansetron [Zofran Odt -] 4 mg SL TID PRN #21 od.tablet 10/19/18 Potassium Citrate 1,620 gm MC Q2H 10/19/18 Review of Systems - Review of Systems Constitutional: No: Chills, Fever Respiratory: No: Shortness of Breath Cardiac (ROS): No: Chest Pain ABD/GI: No: Abdominal Distended : No: Dysuria, Frequency, Hematuria, Urgency Musculoskeletal: Yes: Joint Pain, Muscle Pain. No: Back Pain, Muscle Weakness <Paulino Rowe - Last Filed: 11/14/19 18:17> *Physical Exam - Vital Signs Last Vital Signs Temp Pulse Resp BP Pulse Ox 98.1 F 75 16 114/80 98 11/14/19 13:58 11/14/19 13:58 11/14/19 13:58 11/14/19 13:58 11/14/19 13:58 <Bobbi Mcdowell - Last Filed: 11/14/19 17:12> - Vital Signs Last Vital Signs Temp Pulse Resp BP Pulse Ox 98.1 F 75 16 114/80 98 11/14/19 13:58 11/14/19 13:58 11/14/19 13:58 11/14/19 13:58 11/14/19 13:58 - Physical Exam 11/14/19 14:52 Gen: AAOx 3, no acute distress, comfortable, no signs of respiratory distress HENT: atraumatic, normocephalic with no laceration or contusion. Nasal mucosa without erythema. Oropharynx without erythema or exudates. Mucous membranes moist. EYES: PERRL, EOM intact, conjunctiva pink NECK: supple; trachea midline; no JVD, no lymphadenopathy, or thyromegaly CV: RRR no murmurs, gallops, or rubs. CHEST: CTA b/l no wheezing, rales or rhonchi ABD: +BS/ND. no TTP; soft, no rebound, no guarding EXTREMITY: no cyanosis or erythema. 2+ dorsalis pedis, posterior tibial, and radial pulse. No pedal edema; no calf swelling or tenderness SKIN: no rash, warm and dry, no diaphoresis HEME: no purpura or ecchymosis NEURO: normal speech, CN II-XII intact, sensation intact, normal gait, no cerebellar deficits MS: B/L LE: 5/5 strength in all extremities, FROM intact in all extremities B/L UE: swelling without erythema or warmth to b/l elbows consistent with bursitis, ttp with tense muscle tone to b/l bicep muscle FROM 2+ radial pulse <Paulino Rowe - Last Filed: 11/14/19 18:17> ED Treatment Course - LABORATORY CBC & Chemistry Diagram: 11/14/19 14:45 11/14/19 14:45 - ADDITIONAL ORDERS Additional order review: Laboratory Results 11/14/19 11/14/19 15:00 14:45 Sodium 142 Potassium 3.8 Chloride 112 H Carbon Dioxide 23 Anion Gap 8 BUN 20.2 H Creatinine 1.2 Est GFR (CKD-EPI)AfAm 97.51 Est GFR (CKD-EPI)NonAf 84.13 Random Glucose 123 H Calcium 8.2 L Total Bilirubin 0.7 AST 471 H ALT 136 H Alkaline Phosphatase 77 Creatine Kinase > 19092 H Creatine Kinase Index 0.0 CK-MB (CK-2) 2.4 Total Protein 7.1 Albumin 3.8 Urine Color Yellow Urine Appearance Clear Urine pH 8.0 Ur Specific [place] 1.017 Urine Protein 2+ H Urine Glucose (UA) 3+ H Urine Ketones Negative Urine Blood 3+ H Urine Nitrite Negative Urine Bilirubin Negative Urine Urobilinogen 0.2 Ur Leukocyte Esterase Negative Urine WBC (Auto) 1 Urine RBC (Auto) 3 Urine Casts (Auto) 0 U Epithel Cells (Auto) 1 Urine Bacteria (Auto) 3 11/14/19 14:45 RBC 6.07 H MCV 90.3 MCHC 33.2 RDW 13.0 MPV 8.6 Neutrophils % 66.8 Lymphocytes % 26.1 Monocytes % 6.0 Eosinophils % 0.5 Basophils % 0.6 <Bobbi Mcdowell - Last Filed: 11/14/19 17:12> - LABORATORY CBC & Chemistry Diagram: 11/14/19 14:45 11/14/19 14:45 <Paulino Rowe - Last Filed: 11/14/19 18:17> Medical Decision Making - Medical Decision Making The patient was seen and evaluated in conjunction with midlevel provider under my direct supervision, ancillary studies were reviewed. I agree with the plan as outlined with_NAIMA Rowe. HPI, workup/dispo as outlined. VS reviewed, wnl. After exercise noted to have arm pain and swelling. Patient does have Fanconi syndrome which is associated with decreased reabsorption of the proximal tubules. His creatinine function is 1.2 within normal limits. Patient clinically has acute rhabdomyolysis given significantly elevated CK. Will give IV fluid hydration and flush the kidneys Admission is warranted for medical management and close monitoring 11/14/19 17:12 <Bobbi Mcdowell - Last Filed: 11/14/19 17:12> - Medical Decision Making 11/14/19 14:54 24-year-old male past medical history of Franconi syndrome complaining of bilateral upper extremity swelling. Vital signs stable Will obtain CBC CMP UA and CPK Will reassess based on result Labs show: Laboratory Tests 11/14/19 11/14/19 14:45 14:45 Hgb 18.2 H Hct 54.8 H BUN 20.2 H Creatinine 1.2 AST 471 H ALT 136 H Creatine Kinase > 02885 H Pts labs significant for rhabdomylosis and hemoconcentration spoke to nephrology who states that pt should be given normal saline regardless of Franconi syndrome and repeat BMPs should be obtain. Recommends 125mL/hr NS. Nephro to see pt in AM. Dr Rivera notified out of courtesy. Pt admitted to medicine for further management. <Paulino Rowe - Last Filed: 11/14/19 18:17> Discharge <Bobbi Mcdowell - Last Filed: 11/14/19 17:12> - Discharge Information Problems reviewed: Yes - Admission Yes <Paulino Rowe - Last Filed: 11/14/19 18:17> - Discharge Information Clinical Impression/Diagnosis: Rhabdomyolysis Qualifiers: Rhabdomyolysis type: non-traumatic Qualified Code(s): M62.82 - Rhabdomyolysis Condition: Stable
[2019-11-14 15:02] LABS: BASO % 0.6 % (0-2.0); EOS % 0.5 % (0-4.5); HEMATOCRIT 54.8 % (35.4-49); HEMOGLOBIN 18.2 GM/dL (11.7-16.9); LYMPH % 26.1 % (8-40); MCHC 33.2 g/dl (32.0-35.9); MEAN CELL VOLUME 90.3 fl (80-96); MEAN PLT VOLUME 8.6 fl (7.5-11.1); NEUT % 66.8 % (42.8-82.8); PLATELET COUNT 241 K/MM3 (134-434); RBC 6.07 M/mm3 (4.00-5.60); WHITE BLOOD COUNT 5.9 K/mm3 (4.0-10.0)
[2019-11-14 15:18] LABS: EPI CELLS 1 /uL (0-25.1); HYALINE CASTS 0 /uL (0-3.1); URINE APPEARANCE CLEAR; URINE BACTERIA 3 /uL (0-1359); URINE BILIRUBIN NEGATIVE (NEGATIVE); URINE COLOR YELLOW; URINE GLUCOSE (UA) 3+ (NEGATIVE); URINE KETONE NEGATIVE (NEGATIVE); URINE LEUK ESTERASE NEGATIVE (NEGATIVE); URINE NITRITE NEGATIVE (NEGATIVE); URINE PROTEIN 2+ (NEGATIVE); URINE RBC 3 /uL (0-23.9); URINE UROBILINOGEN 0.2 mg/dL (0.2-1.0); URINE WBC 1 /uL (0-25.8)
[2019-11-14 15:48] LABS: ALBUMIN 3.8 g/dl (3.4-5.0); ALK PHOS 77 U/L (45-117); ANION GAP 8 MMOL/L (8-16); BILIRUBIN,TOTAL 0.7 mg/dL (0.2-1); BLOOD UREA NITROGEN 20.2 mg/dL (7-18); CALCIUM 8.2 mg/dL (8.5-10.1); CHLORIDE 112 mmol/L (98-107); CO2 23 mmol/L (21-32); CREATININE 1.2 mg/dL (0.55-1.3); GLUCOSE,RANDOM 123 mg/dL (74-106); POTASSIUM 3.8 mmol/L (3.5-5.1); SGOT/AST 471 U/L (15-37); SGPT/ALT 136 U/L (13-61); SODIUM 142 mmol/L (136-145); TOT PROT 7.1 g/dl (6.4-8.2)
[2019-11-14] MEDS ORDERED: SODIUM CHLORIDE 0.9% 500 ML INFUS.BAG IV ONE (16:48)
[2019-11-14] MEDS ORDERED: SODIUM CHLORIDE 1,000 ML IV SCH ×2 (17:45→18:12)
--- NOTE | 2019-11-14 17:52 | HP ---
CHIEF COMPLAINT:bilateral arm pain, swelling and tenderness PCP:Dr. Rivera HISTORY OF PRESENT ILLNESS: Mr. Arriola is a 24-year-old male with a past medical history of Fanconi syndrome who presented to the ED with symptoms of bilateral arm pain after exercising. Patient states that 2 days ago he was performing push-ups and pull- ups and he woke up the next morning with both elbows swollen as well as tenderness to his bilateral bicep muscles. Patient was sent to ED by Dr. Sanchez to evaluate for rhabdomyolysis. Patient denied fever, chills, syncopy, lightheadedness, dizziness, headaches, neck or chest pain, shortness of breath, palpitations, back pain, abdominal pain, nausea, vomiting, diarrhea, or constipation. ER workup notable for rhabdomyolysis. (1)CK >14,000, received 3 L of IVF (2)alt 136 , ast 471 (3) creatinine 1.2 (4) UA with 3+ glucose, 3+ protein, 2+ blood Recent Travel: no PAST MEDICAL HISTORY: Fanconi syndrome PAST SURGICAL HISTORY: none Family History noncontributory Social History: Smoking:no Alcohol:no Drugs: no Allergies No Known Allergies Allergy (Verified 11/14/19 13:55) HOME MEDICATIONS: Home Medications Medication Instructions Recorded Calcitriol [Rocaltrol] 0.5 mcg PO TID 10/26/12 Ergocalciferol (Vitamin D2) 50,000 unit PO KASPER 10/26/12 [Vitamin D] Rosuvastatin Calcium [Crestor] 20 mg PO DAILY 10/26/12 Sod Phos Di, [place]/K Phos [place] 250 mg PO Q2H 04/22/18 [Phospha 250 Neutral Tablet] Dextroamphetamine/Amphetamine 30 mg PO ASDIR 10/19/18 [Adderall Xr 30 mg Capsule] Famotidine [Pepcid -] 20 mg PO DAILY #7 tablet 10/19/18 Levocarnitine 330 mg PO 10/19/18 Ondansetron [Zofran Odt -] 4 mg SL TID PRN #21 od.tablet 10/19/18 Potassium Citrate 1,620 gm MC Q2H 10/19/18 REVIEW OF SYSTEMS CONSTITUTIONAL: Absent: fever, chills, diaphoresis, generalized weakness, malaise, loss of appetite, weight change HEENT: Absent: rhinorrhea, nasal congestion, throat pain, throat swelling, difficulty swallowing, mouth swelling, ear pain, eye pain, visual changes CARDIOVASCULAR: Absent: chest pain, syncope, palpitations, irregular heart rate, lightheadedness, peripheral edema RESPIRATORY: Absent: cough, shortness of breath, dyspnea with exertion, orthopnea, wheezing, stridor, hemoptysis GASTROINTESTINAL: Absent: abdominal pain, abdominal distension, nausea, vomiting, diarrhea, constipation, melena, hematochezia GENITOURINARY: Absent: dysuria, frequency, urgency, hesitancy, hematuria, flank pain, genital pain MUSCULOSKELETAL: Absent: myalgia, arthralgia, joint swelling, back pain, neck pain, bilateral arm pain, swelling and tenderness SKIN: Absent: rash, itching, pallor HEMATOLOGIC/IMMUNOLOGIC: Absent: easy bleeding, easy bruising, lymphadenopathy, frequent infections ENDOCRINE: Absent: unexplained weight gain, unexplained weight loss, heat intolerance, cold intolerance NEUROLOGIC: Absent: headache, focal weakness or paresthesias, dizziness, unsteady gait, seizure, mental status changes, bladder or bowel incontinence PSYCHIATRIC: Absent: anxiety, depression, suicidal or homicidal ideation, hallucinations. PHYSICAL EXAMINATION Vital Signs - 24 hr 11/14/19 13:58 Temperature 98.1 F Pulse Rate 75 Respiratory 16 Rate Blood Pressure 114/80 O2 Sat by Pulse 98 Oximetry (%) GENERAL: awake, alert, and fully oriented, no acute distress HEAD: normal NECK:supple LUNGS: lungs clear to auscultation bilaterally no wheezes no crackles no accessory muscle use HEART: regular rate and rhythm normal S1 and S2 ABDOMEN: nontender not distended +BS no guarding MUSCULOSKELETAL: normal range of motion at all joints UPPER EXTREMITIES: 2+ pulses warm well-perfused no cyanosis, both elbows tender to palpation LOWER EXTREMITIES: 2+ pulses warm well-perfused no calf tenderness no peripheral edema NEUROLOGICAL: no focal deficits PSYCHIATRIC: cooperative good eye contact appropriate mood and affect SKIN: warm dry normal turgor no rashes or lesions noted Laboratory Results - last 24 hr 11/14/19 11/14/19 11/14/19 14:45 14:45 15:00 WBC 5.9 RBC 6.07 H Hgb 18.2 H Hct 54.8 H MCV 90.3 MCH 30.0 MCHC 33.2 RDW 13.0 Plt Count 241 MPV 8.6 Absolute Neuts (auto) 4.0 Neutrophils % 66.8 Lymphocytes % 26.1 Monocytes % 6.0 Eosinophils % 0.5 Basophils % 0.6 Nucleated RBC % 0 Sodium 142 Potassium 3.8 Chloride 112 H Carbon Dioxide 23 Anion Gap 8 BUN 20.2 H Creatinine 1.2 Est GFR (CKD-EPI)AfAm 97.51 Est GFR (CKD-EPI)NonAf 84.13 Random Glucose 123 H Calcium 8.2 L Total Bilirubin 0.7 AST 471 H ALT 136 H Alkaline Phosphatase 77 Creatine Kinase > 98582 H Creatine Kinase Index 0.0 CK-MB (CK-2) 2.4 Total Protein 7.1 Albumin 3.8 Urine Color Yellow Urine Appearance Clear Urine pH 8.0 Ur Specific [place] 1.017 Urine Protein 2+ H Urine Glucose (UA) 3+ H Urine Ketones Negative Urine Blood 3+ H Urine Nitrite Negative Urine Bilirubin Negative Urine Urobilinogen 0.2 Ur Leukocyte Esterase Negative Urine WBC (Auto) 1 Urine RBC (Auto) 3 Urine Casts (Auto) 0 U Epithel Cells (Auto) 1 Urine Bacteria (Auto) 3 ASSESSMENT/PLAN: 24-year-old male with a past medical history of Fanconi syndrome who presented with symptoms of bilateral arm pain after exercising and both elbows swollen with tenderness to his bilateral bicep muscles. Admit to Med-Surg/ Dr. Rivera. #1 Rhabdomyolysis CK >14,000, transaminitis c/w with IVF at 125cc/hr #2 Transaminitis hold statin therapy #3 Fanconi Syndrome c/w netraphos monitor BMP daily Nephrology consulted- Dr. Small #4 R/O COVID f/up on COVID swab( sent 11/13) maintain strict droplet/contact isolation precautions maintain oxygen saturation >90% FEN IVF NS at 75 125cc/hr monitor BNP daily, replete electrolytes as needed regular diet DVT Prophylaxis low risk OOB as tolerated Visit type - Emergency Visit Emergency Visit: Yes ED Registration Date: 11/14/19 Care time: The patient presented to the Emergency Department on the above date and was hospitalized for further evaluation of their emergent condition. - New Patient This patient is new to me today: Yes Date on this admission: 11/14/19 - Critical Care Critical Care patient: No
[2019-11-14 18:01] LABS: PHOSPHOROUS 6.2 mg/dL (2.5-4.9)
[2019-11-14] MEDS ORDERED: NAPH,MB-DB/K PH,MBDB POWDER PACKET PO SCH (22:00)
[2019-11-14] MEDS ORDERED: ACETAMINOPHEN 325 MG TABLET (FP) PO PRN (22:37)
[2019-11-14] MEDS: CALCITRIOL 0.25 MCG CAPSULE (FP) PO SCH (23:40)
[2019-11-14] MEDS: LACTATED RINGERS SOLUTION 1,000 ML/1,000 ML INFUS.BAG IV SCH (23:54)
[2019-11-15] MEDS: CALCITRIOL 0.25 MCG CAPSULE (FP) PO SCH ×3 (05:20→21:53)
[2019-11-15] MEDS: LACTATED RINGERS SOLUTION 1,000 ML/1,000 ML INFUS.BAG IV SCH ×3 (05:26→21:59)
[2019-11-15 08:41] LABS: BASO % 0.6 % (0-2.0); EOS % 0.8 % (0-4.5); HEMATOCRIT 48.7 % (35.4-49); HEMOGLOBIN 15.9 GM/dL (11.7-16.9); LYMPH % 39.5 % (8-40); MCH 29.9 pg (25.7-33.7); MCHC 32.7 g/dl (32.0-35.9); MEAN CELL VOLUME 91.5 fl (80-96); MEAN PLT VOLUME 9.2 fl (7.5-11.1); MONO % 6.8 % (3.8-10.2); NEUT % 52.3 % (42.8-82.8); PLATELET COUNT 223 K/MM3 (134-434); RBC 5.32 M/mm3 (4.00-5.60); RDW 13.5 % (11.9-15.9); WHITE BLOOD COUNT 5.8 K/mm3 (4.0-10.0)
[2019-11-15 09:08] LABS: ALBUMIN 3.2 g/dl (3.4-5.0); ALK PHOS 63 U/L (45-117); ANION GAP 8 MMOL/L (8-16); BILIRUBIN,TOTAL 0.6 mg/dL (0.2-1); BLOOD UREA NITROGEN 17.8 mg/dL (7-18); CALCIUM 7.9 mg/dL (8.5-10.1); CHLORIDE 113 mmol/L (98-107); CO2 20 mmol/L (21-32); CREATININE 0.6 mg/dL (0.55-1.3); GLUCOSE,RANDOM 81 mg/dL (74-106); MAGNESIUM 2.3 mg/dL (1.8-2.4); POTASSIUM 3.7 mmol/L (3.5-5.1); SGPT/ALT 116 U/L (13-61); SODIUM 141 mmol/L (136-145); TOT PROT 6.1 g/dl (6.4-8.2)
[2019-11-15 09:11] LABS: SGOT/AST 326 U/L (15-37); URIC ACID 1.5 mg/dL (2.6-7.2)
[2019-11-15] MEDS: levOCARNitine 500 MG/5 ML SOLUTION PO SCH (09:38)
[2019-11-15] MEDS: FAMOTIDINE 20 MG TABLET PO SCH (09:42)
[2019-11-15 09:58] LABS: CHOLESTEROL 164 mg/dL (50-200); HDL CHOLESTEROL 33 mg/dL (40-60); LDL CHOLESTEROL (ONLY SJRH) 112 mg/dL (5-100); TRIGLYCERIDES 114 mg/dL (0-150)
[2019-11-15] MEDS ORDERED: POTASSIUM CITRATE 1620 MG PO PRN (10:00)
[2019-11-15] MEDS ORDERED: POTASSIUM CITRATE 1620 MG PO SCH (12:28)
[2019-11-15] MEDS ORDERED: POTASSIUM CITRATE/CITRIC ACID 2 MEQ/ML ML PO SCH (12:45)
--- NOTE | 2019-11-15 13:28 | CON.NEP ---
Consult Consult Specialty:: Nephrology Referred by:: Medicine Reason for Consultation:: Rhabdomyolyiss/Fanconi syndrome - History of Present Illness Chief Complaint: Arm swelling History of Present Illness: This is a 24 year old male with history of Fanconi syndrome who presented to the ED with arm swelling and pain after working out and found to have rhabdomyolysis. Pt seen and examined at the bedside. He reports continued arm swelling and pain. Making urine. Denies seeing any dark urine. No chest pain or shortness of breath. No flank pain. No leg swelling. Pt is on Potassium/Phos supplementation at home. - History Source History Provided By: Patient Limitations to Obtaining History: No Limitations - Alcohol/Substance Use Hx Alcohol Use: No - Smoking History Smoking history: Never smoked Have you smoked in the past 12 months: No Aproximately how many cigarettes per day: 0 Home Medications - Allergies Allergies/Adverse Reactions: Allergies Allergy/AdvReac Type Severity Reaction Status Date / Time No Known Allergies Allergy Verified 11/14/19 13:55 - Home Medications Home Medications: Ambulatory Orders Calcitriol [Rocaltrol] 0.5 mcg PO TID 10/26/12 Ergocalciferol (Vitamin D2) [Vitamin D] 50,000 unit PO KASPER 10/26/12 Rosuvastatin Calcium [Crestor] 20 mg PO DAILY 10/26/12 Sod Phos Di, [place]/K Phos [place] [Phospha 250 Neutral Tablet] 250 mg PO Q2H 04/22/18 Dextroamphetamine/Amphetamine [Adderall Xr 30 mg Capsule] 30 mg PO ASDIR 10/19/18 Famotidine [Pepcid -] 20 mg PO DAILY #7 tablet 10/19/18 Levocarnitine 330 mg PO 10/19/18 Ondansetron [Zofran Odt -] 4 mg SL TID PRN #21 od.tablet 10/19/18 Potassium Citrate 1,620 gm MC Q2H 10/19/18 Family Medical History Family History: Unremarkable Review of Systems - Review of Systems Constitutional: reports: No Symptoms Eyes: reports: No Symptoms HENT: reports: No Symptoms Neck: reports: No Symptoms Cardiovascular: reports: No Symptoms Respiratory: reports: No Symptoms Gastrointestinal: reports: No Symptoms Genitourinary: reports: No Symptoms Musculoskeletal: reports: Muscle Pain Integumentary: reports: No Symptoms Neurological: reports: No Symptoms Nephrology Consult - Height Height: 5 ft 3 in - Weight Weight: 65.771 kg - BMI Body Mass Index (BMI): 25.7 - Lab Results CBC,BMP: CBC, BMP 11/15/19 07:15 11/15/19 07:15 Anion Gap: Anion Gap Anion Gap 8 MMOL/L (8-16) 11/15/19 07:15 - Physical Examination Vital Signs: Vital Signs Temperature 97.6 F 11/15/19 06:00 Pulse Rate 65 11/15/19 10:00 Respiratory Rate 18 11/15/19 10:00 Blood Pressure 105/56 L 11/15/19 10:00 O2 Sat by Pulse Oximetry (%) 99 11/15/19 00:11 Constitutional: Yes: No Distress, Calm Eyes: Yes: Conjunctiva Clear HENT: Yes: Atraumatic Neck: Yes: Supple Cardiovascular: Yes: Regular Rate and Rhythm Respiratory: Yes: Regular Gastrointestinal: Yes: Soft Extremities: No: Cold, Cool, Cyanosis Edema: Yes Edema: LUE: Trace, RUE: Trace Neurological: Yes: Alert, Oriented Assessment/Plan 24 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 1. Exertional Rhabdomyolysis 2. Fanconi syndrome 3. Metabolic acidosis 4. Mild Hypocalcemia Renal function is preserved Continue aggressive IVF hydration: Increase IVF rate to 200cc per hour Would continue IVF until CK < 5000 Will defer bicarbonate therapy given mild hypocalcemia Continue potassium citrate by mouth Holding phos supplament given elevated sreum phos on admission, will re-check levels again today Start oral calcium carbonate BID Hold Statin given rhabdomyolysis would hold indomethacin given acute rhabdo and increased risk of kidney injury. Trend renal function and electrolytes daily Thank you Sundar Smith DO
[2019-11-15 13:37] LABS: PHOSPHOROUS 2.6 mg/dL (2.5-4.9)
[2019-11-15] MEDS: NAPH,MB-DB/K PH,MBDB POWDER PACKET PO SCH ×2 (14:38→21:53)
[2019-11-15 17:01] LABS: ALBUMIN 3.7 g/dl (3.4-5.0); ALK PHOS 77 U/L (45-117); ANION GAP 8 MMOL/L (8-16); BILIRUBIN,TOTAL 0.6 mg/dL (0.2-1); BLOOD UREA NITROGEN 13.1 mg/dL (7-18); CALCIUM 8.7 mg/dL (8.5-10.1); CHLORIDE 112 mmol/L (98-107); CO2 21 mmol/L (21-32); CREATININE 0.7 mg/dL (0.55-1.3); GLUCOSE,RANDOM 115 mg/dL (74-106); POTASSIUM 4.1 mmol/L (3.5-5.1); SGOT/AST 328 U/L (15-37); SGPT/ALT 130 U/L (13-61); SODIUM 141 mmol/L (136-145); TOT PROT 7.2 g/dl (6.4-8.2)
[2019-11-16] MEDS: CALCITRIOL 0.25 MCG CAPSULE (FP) PO SCH ×2 (06:06→13:41)
[2019-11-16 08:53] LABS: ALBUMIN 3.4 g/dl (3.4-5.0); BILIRUBIN,TOTAL 0.4 mg/dL (0.2-1); BLOOD UREA NITROGEN 28.2 mg/dL (7-18); CALCIUM 8.8 mg/dL (8.5-10.1); CREATININE 0.8 mg/dL (0.55-1.3); MAGNESIUM 2.2 mg/dL (1.8-2.4); PHOSPHOROUS 2.6 mg/dL (2.5-4.9); POTASSIUM 3.6 mmol/L (3.5-5.1); TOT PROT 6.7 g/dl (6.4-8.2)
--- NOTE | 2019-11-16 09:17 | PN ---
Physical Exam: SUBJECTIVE: Patient seen and examined at bedside, denies pain in arms, feels comfortable has limited ROM LUE due to swelling. Admitted for rhabdomyolysis involving both upper extremities after an intense workout days earlier. VSS. OBJECTIVE: Vital Signs Period Temp Pulse Resp BP Sys/Stewart Pulse Ox Last 24 Hr 97.4 F-98.6 F 65-91 16-20 105-114/50-61 97-97 GENERAL: The patient is awake, alert, and fully oriented, in no acute distress. HEAD: Normal with no signs of trauma. EYES: PERRL, extraocular movements intact, sclera anicteric, conjunctiva clear. No ptosis. ENT: Ears normal, nares patent, oropharynx clear without exudates, moist mucous membranes. NECK: Trachea midline, full range of motion, supple. LUNGS: Breath sounds equal, clear to auscultation bilaterally, no wheezes, no crackles, no accessory muscle use. HEART: Regular rate and rhythm, S1, S2 without murmur, rub or gallop. ABDOMEN: Soft, nontender, nondistended, normoactive bowel sounds, no guarding, no rebound, no hepatosplenomegaly, no masses. EXTREMITIES: 2+ pulses, warm, well-perfused, marked swelling of both arms involving wrist and hand L>R, palpable pulses, no bruises or skin color changes NEUROLOGICAL: Cranial nerves II through XII grossly intact. Normal speech, gait not observed. PSYCH: Normal mood, normal affect. SKIN: Warm, dry, normal turgor, no rashes or lesions noted Laboratory Results - last 24 hr 11/15/19 11/15/19 11/15/19 07:15 07:15 07:15 ESR 1 Sodium 141 Potassium 3.7 Chloride 113 H Carbon Dioxide 20 L Anion Gap 8 BUN 17.8 Creatinine 0.6 Est GFR (CKD-EPI)AfAm 163.10 Est GFR (CKD-EPI)NonAf 140.73 Random Glucose 81 Uric Acid 1.5 L Calcium 7.9 L Phosphorus 2.6 Magnesium 2.3 Total Bilirubin 0.6 AST 326 H ALT 116 H Alkaline Phosphatase 63 Creatine Kinase > 70607 H Creatine Kinase Index 0.0 CK-MB (CK-2) 1.6 C-Reactive Protein < 0.3 Total Protein 6.1 L Albumin 3.2 L Triglycerides 114 Cholesterol 164 Total LDL Cholesterol 112 H HDL Cholesterol 33 L TSH 1.90 Hep A IgM Ab Confirm Negative Hep Bs Antigen Negative Hep B Core IgM Ab Negative Hepatitis C Ab (EIA) <0.1 11/15/19 11/15/19 11/16/19 15:00 15:00 07:25 ESR Sodium 141 141 Potassium 4.1 3.6 Chloride 112 H 114 H Carbon Dioxide 21 17 L Anion Gap 8 10 BUN 13.1 28.2 H Creatinine 0.7 0.8 Est GFR (CKD-EPI)AfAm 153.09 144.91 Est GFR (CKD-EPI)NonAf 132.09 125.03 Random Glucose 115 H 125 H Uric Acid Calcium 8.7 8.8 Phosphorus 2.6 Magnesium 2.2 Total Bilirubin 0.6 0.4 AST 328 H 226 H ALT 130 H 117 H Alkaline Phosphatase 77 72 Creatine Kinase > 78692 H 9151 H Creatine Kinase Index Cancelled Cancelled CK-MB (CK-2) 1.8 Cancelled C-Reactive Protein Total Protein 7.2 6.7 Albumin 3.7 3.4 Triglycerides Cholesterol Total LDL Cholesterol HDL Cholesterol TSH Hep A IgM Ab Confirm Hep Bs Antigen Hep B Core IgM Ab Hepatitis C Ab (EIA) Active Medications Generic Name Dose Route Start Last Admin Trade Name Freq PRN Reason Stop Dose Admin Acetaminophen 650 mg 11/14/19 22:37 Tylenol - PO Q6H PRN PAIN LEVEL 6-10 Calcitriol 0.5 mcg 11/14/19 22:00 11/16/19 06:06 Rocaltrol - PO 0.5 mcg TID SEBLE Administration Famotidine 20 mg 11/15/19 10:00 11/15/19 09:42 Pepcid - PO 20 mg DAILY SEBLE Administration Lactated Ringer's 1,000 ml in 1,000 mls @ 150 mls/hr 11/15/19 18:27 11/15/19 21:59 Lactated Ringers Solution IV 150 mls/hr ASDIR SEBLE Administration Levocarnitine 330 mg 11/15/19 10:00 11/15/19 09:38 Carnitor Oral Solution - PO 330 mg DAILY SEBLE Administration Non-Formulary Medication 1 each 11/15/19 14:00 11/16/19 06:06 Patient's Own Med PO 1 each 5XD SEBLE Administration Non-Formulary Medication 1 each 11/15/19 16:00 11/16/19 07:45 Patient's Own Med PO 1 each 0800,1200,1600,2000 SEBLE Administration Non-Formulary Medication 1 each 11/16/19 00:00 11/16/19 00:06 Patient's Own Med PO 1 each 0000 SEBLE Administration Potassium Phos/Sodium Phos 1 packet 11/15/19 13:45 11/15/19 21:53 Phos-Nak Packet - PO 1 packet BID SEBLE Administration ASSESSMENT/PLAN: 24 M Rhabdomyolysis Fanconi's disease Glycogen storage disease CKD Plan: Aggressive IV hydration @150mL/hr with LR K citrate 15meq x10 tabs daily (home dose) DC Phos-nak (Ph level 6.2) Renal follow up DVT ppx; Lovenox SC Visit type - Emergency Visit Emergency Visit: Yes ED Registration Date: 11/14/19 Care time: The patient presented to the Emergency Department on the above date and was hospitalized for further evaluation of their emergent condition. - New Patient This patient is new to me today: Yes Date on this admission: 11/16/19 - Critical Care Critical Care patient: No - Discharge Referral Referred to [facility] No
[2019-11-16] MEDS ORDERED: SODIUM BICARBONATE 650 MG TABLET PO SCH (10:00)
[2019-11-16] MEDS: FAMOTIDINE 20 MG TABLET PO SCH (10:13)
[2019-11-16] MEDS: levOCARNitine 500 MG/5 ML SOLUTION PO SCH (10:13)
[2019-11-16] MEDS: NAPH,MB-DB/K PH,MBDB POWDER PACKET PO SCH (10:13)
[2019-11-16] MEDS: LACTATED RINGERS SOLUTION 1,000 ML/1,000 ML INFUS.BAG IV SCH (10:14)
[2019-11-16 10:43] VITALS: BP 113/65; PULSE 93; TEMP 97.8
--- NOTE | 2019-11-16 12:10 | PN ---
Progress Note, Physician Chief Complaint: Rhabdomyolysis - Current Medication List Current Medications: Active Medications Acetaminophen (Tylenol -) 650 mg PO Q6H PRN PRN Reason: PAIN LEVEL 6-10 Calcitriol (Rocaltrol -) 0.5 mcg PO TID [facility] Last Admin: 11/16/19 06:06 Dose: 0.5 mcg Documented by: Famotidine (Pepcid -) 20 mg PO DAILY [facility] Last Admin: 11/16/19 10:13 Dose: 20 mg Documented by: Lactated Ringer's (Lactated Ringers Solution) 1,000 ml in 1,000 mls @ 150 mls/hr IV ASDIR [facility] Last Admin: 11/16/19 10:14 Dose: 150 mls/hr Documented by: Levocarnitine (Carnitor Oral Solution -) 330 mg PO DAILY [facility] Last Admin: 11/16/19 10:13 Dose: 330 mg Documented by: Non-Formulary Medication (Patient's Own Med) 1 each PO 5XD [facility] Last Admin: 11/16/19 10:14 Dose: 1 each Documented by: Non-Formulary Medication (Patient's Own Med) 1 each PO 0800,1200,1600,2000 [facility] Last Admin: 11/16/19 07:45 Dose: 1 each Documented by: Non-Formulary Medication (Patient's Own Med) 1 each PO 0000 [facility] Last Admin: 11/16/19 00:06 Dose: 1 each Documented by: Potassium Phos/Sodium Phos (Phos-Nak Packet -) 1 packet PO BID [facility] Last Admin: 11/16/19 10:13 Dose: 1 packet Documented by: Sodium Bicarbonate (Sodium Bicarbonate -) 650 mg PO BID [facility] Last Admin: 11/16/19 10:13 Dose: 650 mg Documented by: - Objective Vital Signs: Vital Signs Temperature 97.8 F 11/16/19 10:00 Pulse Rate 93 H 11/16/19 10:00 Respiratory Rate 16 11/16/19 10:00 Blood Pressure 113/65 11/16/19 10:00 O2 Sat by Pulse Oximetry (%) 97 11/15/19 22:00 Constitutional: Yes: No Distress Extremities: Yes: Cyanosis Edema: No Neurological: Yes: Alert, Oriented Labs: CBC, BMP 11/15/19 07:15 11/16/19 07:25 Assessment/Plan 24 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 1. Exertional Rhabdomyolysis 2. Fanconi syndrome 3. Metabolic acidosis 4. Mild Hypocalcemia Renal function stable. Pt wants to be discharged home. Given CK > 9000 will still need aggressive oral hydration. Will need to monitor CK levels closely until < 5000 (to follow up with his medical record transcriber as an outpatient) Would hold indomethicin for now Hold Crestor for now Continue K-Citra and sodium phospahte at home (half dose of sodium phosphate) Hypocalcemia improved To be discharged as per primary team today Thank you Sundar Smith DO
--- NOTE | 2019-11-16 12:11 | DS ---
Physical Exam: SUBJECTIVE: Patient seen and examined at bedside, arm swelling markedly improved, denies complaints, CK down to 9K, wants to go home and hydrate PO with follow up w/ Dr. Small (renal) Sunday AM. OBJECTIVE: Vital Signs Period Temp Pulse Resp BP Sys/Stewart Pulse Ox Last 24 Hr 97.4 F-98.6 F 66-93 16-20 105-114/50-65 97-97 PHYSICAL EXAM GENERAL: The patient is awake, alert, and fully oriented, in no acute distress. HEENT NC/AT, EOMI, neck supple, MMM Chest CTAB, no crackles or wheezing HEART: Regular rate and rhythm, S1, S2 without murmur, rub or gallop. ABDOMEN: Soft, nontender, nondistended, normoactive bowel sounds, no guarding, no rebound, no hepatosplenomegaly, no masses. EXTREMITIES: 2+ pulses, warm, well-perfused, marked improvement of swelling both arms, improved ROM of both arms, good pulses UE b/l, no bruising or skin rashes PSYCH: Normal mood, normal affect. SKIN: Warm, dry, normal turgor, no rashes or lesions noted LABS Laboratory Results - last 24 hr 11/15/19 11/15/19 11/15/19 07:15 07:15 15:00 Sodium 141 141 Potassium 3.7 4.1 Chloride 113 H 112 H Carbon Dioxide 20 L 21 Anion Gap 8 8 BUN 17.8 13.1 Creatinine 0.6 0.7 Est GFR (CKD-EPI)AfAm 163.10 153.09 Est GFR (CKD-EPI)NonAf 140.73 132.09 Random Glucose 81 115 H Uric Acid 1.5 L Calcium 7.9 L 8.7 Phosphorus 2.6 Magnesium 2.3 Total Bilirubin 0.6 0.6 AST 326 H 328 H ALT 116 H 130 H Alkaline Phosphatase 63 77 Creatine Kinase > 62043 H > 77104 H Creatine Kinase Index 0.0 Cancelled CK-MB (CK-2) 1.6 1.8 C-Reactive Protein < 0.3 Total Protein 6.1 L 7.2 Albumin 3.2 L 3.7 Triglycerides 114 Cholesterol 164 Total LDL Cholesterol 112 H HDL Cholesterol 33 L TSH 1.90 Hep A IgM Ab Confirm Negative Hep Bs Antigen Negative Hep B Core IgM Ab Negative Hepatitis C Ab (EIA) <0.1 11/15/19 11/16/19 15:00 07:25 Sodium 141 Potassium 3.6 Chloride 114 H Carbon Dioxide 17 L Anion Gap 10 BUN 28.2 H Creatinine 0.8 Est GFR (CKD-EPI)AfAm 144.91 Est GFR (CKD-EPI)NonAf 125.03 Random Glucose 125 H Uric Acid Calcium 8.8 Phosphorus 2.6 Magnesium 2.2 Total Bilirubin 0.4 AST 226 H ALT 117 H Alkaline Phosphatase 72 Creatine Kinase 9151 H Creatine Kinase Index Cancelled 0.0 CK-MB (CK-2) Cancelled 1.0 C-Reactive Protein Total Protein 6.7 Albumin 3.4 Triglycerides Cholesterol Total LDL Cholesterol HDL Cholesterol TSH Hep A IgM Ab Confirm Hep Bs Antigen Hep B Core IgM Ab Hepatitis C Ab (EIA) HOSPITAL COURSE: Date of Admission:11/14/19 Date of Discharge: 11/16/19 Minutes to complete discharge: 45 Discharge Summary Problems reviewed: Yes Reason For Visit: RHABDOMYOLYSIS Current Active Problems Rhabdomyolysis (Acute) Condition: Improved - Instructions Diet, Activity, Other Instructions: You were admitted to the hospital and treated for rhabdomyolysis (inflammation of your muscles) due to intense exercise you endured earlier in the week and acute kidney injury. You received aggressive IV hydration with improvement of your rhabdomyolysis. You must remain on an aggressive oral hydration regimen when you get home until your Ground Operations Supervisor (Dr. Small) tells you otherwise. Please stop taking your Indomethacin and Crestor. Your phos-nak dosage was also decreased to half the normal dose (6 total tabs daily), you can continue taking your Levocarnitine 330mg daily and K citrate 15meq 10 tabs daily as well as your Calcitriol. Please refrain from any physical activity or exercise and avoid dehydration or going in the sun. You must also refrain from smoking and drinking alcohol. If you feel shortness of breath, chest pain, headaches, abdominal pain, worsening arm pain or swelling, dizziness, loss of consciousness, decreased urination, blood in urine, diarrhea, fever, chills, cough, rash, hives, wheezing please return to ED immediately. Appointments: 11/17/[address] Michelle Small [address] [place] [address] 1 week with your primary care doctor. Thank you for letting us partake in your care. Abilio Connors M.D., F.A.CEviPEvi [facility] [place] Referrals: Ebenezer Bauer MD [Primary Care Provider] - Michelle Small MD [Staff Physician] - Disposition: HOME - Home Medications Comprehensive Discharge Medication List: Ambulatory Orders Calcitriol [Rocaltrol] 0.5 mcg PO TID 10/26/12 Ergocalciferol (Vitamin D2) [Vitamin D] 50,000 unit PO KASPER 10/26/12 Levocarnitine 330 mg PO 10/19/18 Potassium Citrate 1,620 gm MC Q2H 10/19/18 Sod Phos Di, Mchenry/K Phos Mchenry [Phospha 250 Neutral Tablet] 250 mg PO Q4H #180 tablet 11/16/19 This patient is new to me today: Yes Date on this admission: 12/04/19 Emergency Visit: Yes ED Registration Date: 11/14/19 Care time: The patient presented to the Emergency Department on the above date and was hospitalized for further evaluation of their emergent condition. Critical Care patient: No - Discharge Referral Referred to [facility] No
[2019-11-18 16:08] LABS: ATYPICAL pANCA <1:20 titer (Neg:<1:20); C-ANCA <1:20 titer (Neg:<1:20)
[2019-11-18 19:11] LABS: CK-MM 100 % (97-100)
== END 2019-11-16 16:44 | disposition home or self-care (01) | DRG 351 ==
LOC: JER 13:52 → JERBED 17:18 → J6S 23:46
PROVIDERS: ADMIT Internal Medicine; ATTEND Family Medicine
DX: M62.82 Rhabdomyolysis (principal); E74.00 Glycogen storage disease, unspecified; E72.09 Other disorders of amino-acid transport; E87.2 Acidosis; E83.51 Hypocalcemia; N18.9 Chronic kidney disease, unspecified; R74.0 Nonspecific elevation of levels of transaminase and lactic acid dehydrogenase [LDH]
CPT/HCPCS: 36415; 80053; 80061; 80074; 81003; 82550; 82552; 82553; 83036; 83516; 83520; 83721; 83735; 83970; 84100; 84443; 84550; 85025; 85651; 86038; 86140; 86225; 86235; 86256; 99285-25; U0003

== ENCOUNTER 2021-02-24 17:19 | Emergency (ER) | payer OTHER ==
[2021-02-24 17:29] VITALS: TEMP 98.7; BMI 23.0
[2021-02-24] MEDS ORDERED: LACTATED RINGERS SOLUTION 1000 ML INFUS.BAG IV ONE ×2 (17:51→18:16)
[2021-02-24 18:34] LABS: VENOUS BASE EXCESS -3.9 mmol/L (-2-2); VENOUS O2 SATURATION 34.2 % (70-80); VENOUS PH 7.298 (7.310-7.410)
[2021-02-24] MEDS ORDERED: FAMOTIDINE 20 MG/50 ML IVPB 20 MG/50 ML MG IVPB ONE ×2 (18:34→19:22)
[2021-02-24] MEDS ORDERED: ONDANSETRON 4 MG/2 ML VIAL IVPUSH ONE (18:34)
[2021-02-24 18:36] LABS: BASO % 0.8 % (0-2.0); EOS % 0.8 % (0-4.5); HEMATOCRIT 51.2 % (35.4-49); HEMOGLOBIN 17.3 GM/dL (11.7-16.9); MCH 29.9 pg (25.7-33.7); MCHC 33.8 g/dl (32.0-35.9); MEAN CELL VOLUME 88.4 fl (80-96); MONO % 9.7 % (3.8-10.2); NEUT % 53.7 % (42.8-82.8); PLATELET COUNT 316 10^3/uL (134-434); RBC 5.79 M/mm3 (4.00-5.60); RDW 13.4 % (11.9-15.9); WHITE BLOOD COUNT 5.9 K/mm3 (4.0-10.0)
[2021-02-24 18:42] LABS: PH,URINE 7.5 (5.0-8.0); URINE APPEARANCE CLEAR; URINE BILIRUBIN NEGATIVE (NEGATIVE); URINE COLOR YELLOW; URINE GLUCOSE (UA) 3+ (NEGATIVE); URINE KETONE NEGATIVE (NEGATIVE); URINE LEUK ESTERASE NEGATIVE (NEGATIVE); URINE NITRITE NEGATIVE (NEGATIVE); URINE PROTEIN TRACE (NEGATIVE); URINE UROBILINOGEN 0.2 mg/dL (0.2-1.0)
[2021-02-24] MEDS ORDERED: METOCLOPRAMIDE HCL INJECTION 10 MG/2 ML VIAL ONE ×2 (18:46→19:52)
[2021-02-24 18:52] LABS: CHLORIDE 104 mmol/L (98-107); SODIUM 138 mmol/L (136-145)
[2021-02-24 18:54] LABS: CALCIUM 9.3 mg/dL (8.5-10.1)
[2021-02-24 18:55] LABS: ALBUMIN 3.9 g/dl (3.4-5.0); ANION GAP 11 MMOL/L (8-16); BLOOD UREA NITROGEN 19.3 mg/dL (7-18); CO2 22 mmol/L (21-32); GLUCOSE,RANDOM 202 mg/dL (74-106); MAGNESIUM 2.4 mg/dL (1.8-2.4)
[2021-02-24 18:58] LABS: CREATININE 1.4 mg/dL (0.55-1.3); SGOT/AST 17 U/L (15-37); SGPT/ALT 37 U/L (13-61)
[2021-02-24 18:59] LABS: BILIRUBIN,TOTAL 0.5 mg/dL (0.2-1); PHOSPHOROUS 5.7 mg/dL (2.5-4.9); TOT PROT 7.7 g/dl (6.4-8.2)
[2021-02-24 19:00] LABS: ALK PHOS 108 U/L (45-117)
[2021-02-24] MEDS ORDERED: ONDANSETRON 4 MG/2 ML VIAL ONE (19:22)
[2021-02-24] MEDS ORDERED: METOCLOPRAMIDE HCL INJECTION 10 MG/2 ML VIAL IVPB ONE (19:35)
[2021-02-24] MEDS ORDERED: ACETAMINOPHEN 1000 MG/100 ML VIAL IVPB ONE (19:36)
[2021-02-24] MEDS ORDERED: ACETAMINOPHEN INJECTION 100 ML IVPB ONE (19:52)
[2021-02-24 20:28] LABS: URIC ACID 1.9 mg/dL (2.6-7.2)
[2021-02-24 20:31] LABS: CREATININE, URINE RANDOM < 13.0 mg/dL (30-150)
[2021-02-24 23:39] LABS: BASO % 0.8 % (0-2.0); EOS % 0.9 % (0-4.5); HEMATOCRIT 44.3 % (35.4-49); HEMOGLOBIN 14.9 GM/dL (11.7-16.9); LYMPH % 42.8 % (8-40); MCH 29.8 pg (25.7-33.7); MCHC 33.7 g/dl (32.0-35.9); MEAN CELL VOLUME 88.5 fl (80-96); MEAN PLT VOLUME 7.4 fl (7.5-11.1); NEUT % 47.5 % (42.8-82.8); PLATELET COUNT 241 10^3/uL (134-434); RBC 5.01 M/mm3 (4.00-5.60); RDW 13.3 % (11.9-15.9); WHITE BLOOD COUNT 5.9 K/mm3 (4.0-10.0)
[2021-02-25] LABS: CALCIUM 8.2 mg/dL (8.5-10.1)
[2021-02-25 00:01] LABS: BLOOD UREA NITROGEN 15.7 mg/dL (7-18)
[2021-02-25 00:04] LABS: CREATININE 0.9 mg/dL (0.55-1.3)
[2021-02-25 00:29] LABS: PH,URINE 7.5 (5.0-8.0); URINE APPEARANCE CLEAR; URINE BILIRUBIN NEGATIVE (NEGATIVE); URINE COLOR YELLOW; URINE GLUCOSE (UA) 3+ (NEGATIVE); URINE KETONE NEGATIVE (NEGATIVE); URINE LEUK ESTERASE NEGATIVE (NEGATIVE); URINE NITRITE NEGATIVE (NEGATIVE); URINE PROTEIN TRACE (NEGATIVE); URINE UROBILINOGEN 0.2 mg/dL (0.2-1.0)
[2021-02-25 00:47] VITALS: BP 110/67; PULSE 93
[2021-02-25 01:17] LABS: CREATININE, URINE RANDOM < 13.0 mg/dL (30-150)
== END 2021-02-25 00:51 | disposition home or self-care (01) ==
LOC: JER 17:19
PROC: 3E033NZ Introduction of Analgesics, Hypnotics, Sedatives into Peripheral Vein, Percutaneous Approach (ICD-10-PCS; principal; 2021-02-24)
PROC: 3E033GC Introduction of Other Therapeutic Substance into Peripheral Vein, Percutaneous Approach (ICD-10-PCS; 2021-02-24)
PROC: 3E033GC Introduction of Other Therapeutic Substance into Peripheral Vein, Percutaneous Approach (ICD-10-PCS; 2021-02-24)
PROC: 3E033GC Introduction of Other Therapeutic Substance into Peripheral Vein, Percutaneous Approach (ICD-10-PCS; 2021-02-24)
DX: E72.04 Cystinosis (principal); E86.0 Dehydration
CPT/HCPCS: 36415; 71045-TC-FY; 80048; 80053; 81003; 82010; 82436; 82550; 82570; 82803; 82962; 83036; 83735; 84100; 84133; 84300; 84484; 84550; 85025; 87086; 93005; 93010; 99285-25; C9803; J0131; U0003; U0005